=== PATIENT | female | born 1995 | race Caucasian/White ===

== ENCOUNTER 2016-11-06 17:09 | Emergency (ER) | payer BC ==
[~2016-11-06] VITALS: Ht 162.6 cm; Wt 56.1 kg
[~2016-11-06 17:09] MED LIST: NORETAB29 PO; SERT50TA PO
[2016-11-06 17:19] VITALS: TEMP 36.8; Ht 162.6 cm; Wt 56.1 kg
[2016-11-06] MEDS ORDERED: GI COCKTAIL PO STA (17:55)
[2016-11-06] MEDS ORDERED: SUCRALFATE 1 GM TAB PO ONE (18:00)
[2016-11-06] MEDS ORDERED: FAMOTIDINE 20 MG TAB PO ONE (18:00)
[2016-11-06] MEDS ORDERED: OMEP40CA PO (18:07)
[2016-11-06] MEDS ORDERED: LEVO125T72 PO (18:07)
[2016-11-06] MEDS ORDERED: SODIUM CHLORIDE 0.9% 1000ML 1,000 ML IV STA (18:12)
[2016-11-06 18:15] LABS: BASO % 0.5 %; BASO ABS # 0.04 K/uL (0-0.2); COMPLETE YES; EOS % 0.7 %; HEMATOCRIT 40.1 % (37-47); IG% 0.3 %; LYMPH % 12.9 %; LYMPH ABS # 0.95 K/uL (1.2-3.4); MEAN CELL VOLUME 86.6 fL (80-100); MEAN CORPUSCULAR HEMOGLOBIN 29.8 pg (25-34); MEAN CORPUSCULAR HGB CONC 34.4 g/dl (32-36); MEAN PLATELET VOLUME 8.7 fL (7.4-10.4); MONO % 6.7 %; NEUT % 78.9 %; PLATELET COUNT 194 K/uL (130-400); RED BLOOD COUNT 4.63 M/uL (4.2-5.4); WHITE BLOOD COUNT 7.35 K/uL (4.8-10.8)
--- NOTE | 2016-11-06 18:16 | EMERGENCY ROOM VISIT NOTE ---
History Report prepared by Valentina: Trever Ruiz Under the Supervision of: Dr. Tyler Atkinson M.D. First contact with patient: 17:33 Chief Complaint: ABDOMINAL PAIN Stated Complaint: STOMACH PAIN, DIZZINESS, SHAKING Nursing Triage Summary: Stomach discomfort, bloated. Dizzy. Nausea. Denies V/D. History of Present Illness The patient is a 21 year old female who presents to the Emergency Room with complaints of constant abdominal discomfort starting two days ago. The patient states that she is currently in minimal discomfort. The patient states that the discomfort in her stomach is like a tightness that seems to be from air or gas. The patient additionally complains of dizziness, shakes, nausea, and swollen hands. The patient denies any vomiting, diarrhea, fever, cough, or sore throat. The patient states that she has a history of thyroid cancer, and two half thyroidectomies. The patient states that she has not taken her thyroid medications for the past two days. Source of History: patient Onset: two days ago Position: abdomen Symptom Intensity: minimal Quality: other (tightness) Timing: constant Associated Symptoms: + nausea, No cough, No diarrhea, No fevers, No sorethroat, No vomiting Note: Associated symptoms: dizziness, shakes, and swollen hands Review of Systems See HPI for pertinent positives & negatives. A total of 10 systems reviewed and were otherwise negative. Past Medical & Surgical Medical Problems: (1) Thyroid cancer Surgical Problems: (1) H/O thyroidectomy Family History Cancer Diabetes mellitus Heart disease Hypertension Lung disease Social History Smoking Status: Never Smoker Marital Status: single Housing Status: lives with roommate Occupation Status: [employer] Current/Historical Medications Scheduled Levothyroxine Sodium (Synthroid), 125 MCG PO DAILY Norethindrone Acetate-Ethinyl (Lo Loestrin Fe), 1 TAB PO DAILY Omeprazole (Prilosec), 40 MG PO DAILY Allergies Coded Allergies: Penicillins (Verified Allergy, Intermediate, rash, 11/06/16) Sulfa Antibiotics (Verified Allergy, Intermediate, rash, 11/06/16) Physical Exam Vital Signs Date Time Temp Pulse Resp B/P Pulse Ox O2 Delivery O2 Flow Rate FiO2 11/06/16 19:18 101 18 134/78 100 Room Air 11/06/16 18:31 105 11/06/16 18:30 111 18 123/89 100 Room Air 11/06/16 17:19 36.8 107 18 162/95 98 Room Air Physical Exam GENERAL: Patient is a healthy-appearing well-nourished female HEAD: Normocephalic atraumatic EYES: Ocular movements intact pupils equal and react to light OROPHARYNX mucous membranes are moist no exudates present no erythema or edema present NECK: Supple no nuchal rigidity CHEST: Good equal expansion LUNGS: Clear and equal to auscultation CARDIAC: Normal S1 and S2 ABDOMEN: Soft nontender no guarding BACK: No CVA tenderness EXTREMITIES: No pain upon palpation normal muscle strength in all groups no clubbing cyanosis or edema NEURO: Patient is following commands is answering questions appropriately. Alert and oriented x3 Cranial Nerves 2-12 grossly intact Medical Decision & Procedures Laboratory Results 11/06/16 18:00 Red Blood Count 4.63, Mean Corpuscular Volume 86.6, Mean Corpuscular Hemoglobin 29.8, Mean Corpuscular Hemoglobin Concent 34.4, Mean Platelet Volume 8.7, Neutrophils (%) (Auto) 78.9, Lymphocytes (%) (Auto) 12.9, Monocytes (%) (Auto) 6.7, Eosinophils (%) (Auto) 0.7, Basophils (%) (Auto) 0.5, Neutrophils # (Auto) 5.80, Lymphocytes # (Auto) 0.95, Monocytes # (Auto) 0.49, Eosinophils # (Auto) 0.05, Basophils # (Auto) 0.04 11/06/16 18:00 Test 11/06/16 18:00 White Blood Count 7.35 K/uL (4.8-10.8) Red Blood Count 4.63 M/uL (4.2-5.4) Hemoglobin 13.8 g/dL (12.0-16.0) Hematocrit 40.1 % (37-47) Mean Corpuscular Volume 86.6 fL (80-100) Mean Corpuscular Hemoglobin 29.8 pg (25-34) Mean Corpuscular Hemoglobin Concent 34.4 g/dl (32-36) Platelet Count 194 K/uL (130-400) Mean Platelet Volume 8.7 fL (7.4-10.4) Neutrophils (%) (Auto) 78.9 % Lymphocytes (%) (Auto) 12.9 % Monocytes (%) (Auto) 6.7 % Eosinophils (%) (Auto) 0.7 % Basophils (%) (Auto) 0.5 % Neutrophils # (Auto) 5.80 K/uL (1.4-6.5) Lymphocytes # (Auto) 0.95 K/uL (1.2-3.4) Monocytes # (Auto) 0.49 K/uL (0.11-0.59) Eosinophils # (Auto) 0.05 K/uL (0-0.5) Basophils # (Auto) 0.04 K/uL (0-0.2) RDW Standard Deviation 42.6 fL (36.4-46.3) RDW Coefficient of Variation 13.4 % (11.5-14.5) Immature Granulocyte % (Auto) 0.3 % Immature Granulocyte # (Auto) 0.02 K/uL (0.00-0.02) Urine Color YELLOW Urine Appearance CLEAR (CLEAR) Urine pH >= 9.0 (4.5-7.5) Urine Specific [place] 1.023 (1.000-1.030) Urine Protein NEG (NEG) Urine Glucose (UA) NEG (NEG) Urine Ketones TRACE (NEG) Urine Occult Blood 1+ (NEG) Urine Nitrite NEG (NEG) Urine Bilirubin NEG (NEG) Urine Urobilinogen NEG (NEG) Urine Leukocyte Esterase SMALL (NEG) Urine WBC (Auto) 1-5 /hpf (0-5) Urine RBC (Auto) 0-4 /hpf (0-4) Urine Hyaline Casts (Auto) 1-5 /lpf (0-5) Urine Epithelial Cells (Auto) >30 /lpf (0-5) Urine Bacteria (Auto) 1+ (NEG) Urine Test NEG (NEG) Anion Gap 13.0 mmol/L (3-11) Est Creatinine Clear Calc Drug Dose 115.7 ml/min Estimated GFR () 146.7 Estimated GFR (Non- 126.5 BUN/Creatinine Ratio 11.5 (10-20) Calcium Level 9.0 mg/dl (8.5-10.1) Total Bilirubin 0.4 mg/dl (0.2-1) Direct Bilirubin 0.1 mg/dl (0-0.2) Aspartate Amino Transf (AST/SGOT) 26 U/L (15-37) Alanine Aminotransferase (ALT/SGPT) 23 U/L (12-78) Alkaline Phosphatase 70 U/L (45-117) Total Protein 7.6 gm/dl (6.4-8.2) Albumin 3.8 gm/dl (3.4-5.0) Lipase 88 U/L (73-393) Labs reviewed by ED physician. Medications Administered Medications (Trade) Dose Ordered Sig/Mine Route Start Time Stop Time Status Last Admin Dose Admin Famotidine (Pepcid Tab) 20 mg NOW ONCE PO 11/06/16 18:00 11/06/16 18:01 DC 11/06/16 18:38 20 MG Sucralfate 1 gm 1 gm NOW ONCE PO 11/06/16 18:00 11/06/16 18:01 DC 11/06/16 18:38 1 GM Sodium Chloride (Nss 1000ml) 1,000 ml @ 999 mls/hr Q1H1M STAT IV 11/06/16 18:12 11/06/16 19:12 DC 11/06/16 18:38 999 MLS/HR Al Hydroxide/Mg Hydroxide (Maalox Susp) 30 ml STK-MED ONCE .ROUTE 11/06/16 18:33 11/06/16 18:34 DC 11/06/16 18:38 30 ML Lidocaine HCl (Viscous Lidocaine 2% Soln) 20 ml STK-MED ONCE .ROUTE 11/06/16 18:33 11/06/16 18:34 DC 11/06/16 18:37 20 ML ED Course 1733: Past medical records reviewed. The patient was evaluated in room B3. A complete history and physical examination was performed. Medical Decision This is a 21-year-old female who presents emergency department complaining of several complaints. The patient has run take her thyroid medication for the past 2 days however she didn't take it today. She is complaining of epigastric pain along with a large amount which she describes as gas. Serial abdominal examinations were performed and the patient emergency department in no time did she exhibit a surgical abdomen. Patient was given a GI cocktail along with Pepcid and Carafate in the emergency department. Repeat examination revealed improvement patient's symptoms. I do believe the patient as well as to be discharged home I will recommend Maalox 5 as well as before every meal and at bedtime along with Pepcid for her stomach. I also recommended a MiraLAX cleanout. Patient was in agreement with the treatment plan. Impression Primary Impression: Epigastric abdominal pain Scribe Attestation The scribe's documentation has been prepared under my direction and personally reviewed by me in its entirety. I confirm that the note above accurately reflects all work, treatment, procedures, and medical decision making performed by me. Departure Information Dispostion Home / Self-Care Referrals [facility] (PCP) Patient Instructions My [facility]
[2016-11-06 18:29] LABS: URINE APPEARANCE CLEAR (CLEAR); URINE BILIRUBIN NEG (NEG); URINE COLOR YELLOW; URINE EPITHELIAL CELL AUTO >30 /lpf (0-5); URINE NITRITE NEG (NEG); URINE PH >= 9.0 (4.5-7.5); URINE SPECIFIC GRAVITY 1.023 (1.000-1.030); UROBILINOGEN NEG (NEG)
[2016-11-06 18:33] LABS: BUN/CREATININE RATIO 11.5 (10-20); CREATININE 0.67 mg/dl (0.60-1.20); POTASSIUM 3.6 mmol/L (3.5-5.1)
[2016-11-06] MEDS ORDERED: LIDOCAINE HCL 2% VISC SOLN 20 ML UDC ONE (18:33)
[2016-11-06] MEDS ORDERED: ALUMINUM/MAGNESIUM SUSP 30 ML UDC ONE (18:33)
[2016-11-06 18:34] LABS: MANUAL MICROSCOPIC REQUIRED? NO; REVIEW REQ? NO
[2016-11-06] MEDS ORDERED: CEFTRIAXONE SOD INJ 1 GM ADDVIAL IV STA (19:00)
[2016-11-06 19:18] VITALS: BP 134/78
--- NOTE | 2016-11-06 19:22 | DIAGNOSTIC IMAGING REPORT ---
PA CHEST WITH ABDOMINAL SERIES CLINICAL HISTORY: Epigastric abdominal pain. FINDINGS: A PA chest radiograph is obtained. No prior studies are available for comparison at the time of dictation. The cardiomediastinal silhouette is unremarkable. The lungs and pleural spaces are clear. No pneumothorax is seen. The bony thorax is grossly intact. Supine and erect abdominal radiographs are correlated with abdominal CT dated 01/24/2016. There is a nonobstructed abdominal bowel gas pattern. No intraperitoneal free air is seen. There are no abnormal abdominal calcifications. The lumbosacral spine and bony pelvis appear intact. Small bone islands are incidentally noted in the left acetabulum and the left proximal femur. IMPRESSION: 1. No active disease in the chest. 2. Unremarkable abdominal radiographs. Electronically signed by: Junior Antonio M.D. 11/06/2016 7:20 PM Dictated Date/Time: 11/06/2016 7:18 PM
[2016-11-06] MEDS ORDERED: SULF800T23 PO (19:32)
[2016-11-06] MEDS ORDERED: CIPR-255 PO (19:53)
[2016-11-06 20:00] VITALS: PULSE 106; O2SAT 99
== END 2016-11-06 20:01 | disposition home or self-care (01) ==
LOC: C.EDB 17:10
DX: R10.13 Epigastric pain (principal); Z85.850 Personal history of malignant neoplasm of thyroid; E89.0 Postprocedural hypothyroidism; Z83.3 Family history of diabetes mellitus; Z82.49 Family history of ischemic heart disease and other diseases of the circulatory system; Z79.899 Other long term (current) drug therapy